=== PATIENT | male | born 1945 | race Caucasian/White ===

== ENCOUNTER 2016-08-01 09:34 | Emergency (ER) | payer MEDICARE ==
[2016-08-01] MEDS ORDERED: IOPAMIDOL 370 (76%) 100 ML VIAL IV ONE (09:35)
[2016-08-01] MEDS ORDERED: SODIUM CHLORIDE 0.9% 1,000 ML ONE (09:48)
[2016-08-01] MEDS ORDERED: MECLIZINE HCL 25 MG TABLET ONE (09:49)
--- NOTE | 2016-08-01 10:25 | RAD ---
EXAMINATION:CHEST - 2 VIEWS CLINICAL INDICATION: Trauma COMPARISON: 11/23/2012. FINDINGS: The cardiomediastinal silhouette is within normal limits. There is no adenopathy identified. There is no pleural effusion. The lungs are clear. The osseous structures are unremarkable for age. IMPRESSION: Negative PA and lateral views of the chest. No acute cardiopulmonary process is identified.
[2016-08-01] MEDS ORDERED: ONDANSETRON 4 MG/2ML 2 ML VIAL ONE (10:49)
[2016-08-01 11:10] LABS: ABSOLUTE NEUTROPHIL COUNT 10.4 K/mm3 (1.8-7.7); BASO # 0.1 K/mm3 (0.0-0.2); BASO % 0.5 % (0.2-1.0); EOS # 0.1 (0.0-0.5); EOS % 0.6 % (0.9-2.9); HEMATOCRIT 42.9 % (32.0-52.0); HEMOGLOBIN 14.5 gm/l (14.0-18.0); IMM NEUT # 0.1 K/mm3 (0-0.2); IMM NEUT% 0.4 % (0-1); LYMPH # 1.4 (1.0-4.8); MEAN CELL VOLUME 85.3 fl (80.0-94.0); MEAN CORPUSCULAR HEMOGLOBIN 28.8 pg (27.0-31.0); MEAN CORPUSCULAR HGB CONC 33.8 g/dl (33.0-37.0); MEAN PLATELET VOLUME 10.1 fl (7.4-10.4); MONO # 0.5 (0.0-0.8); MONO % 4.3 % (4-12); NEUT % 83.2 % (43-75); PLATELET COUNT 264 K/mm3 (130-400); RED CELL DISTRIBUTION WIDTH 13.5 % (11.5-14.5)
[2016-08-01 11:22] LABS: URINE BILIRUBIN NEGATIVE (NEGATIVE); URINE BLOOD NEGATIVE (NEGATIVE); URINE GLUCOSE (UA) NEGATIVE (NEGATIVE); URINE LEUKOCYTE ESTERASE NEGATIVE (NEGATIVE); URINE NITRITE NEGATIVE (NEGATIVE); URINE PROTEIN NEGATIVE (NEGATIVE); URINE UROBILINOGEN NORMAL (0-1 mg/dl)
[2016-08-01 11:25] LABS: URINE APPEARANCE CLEAR; URINE COLOR YELLOW
[2016-08-01 11:31] LABS: ALB/GLOB RATIO 1.5 (>1.0); ALBUMIN 3.8 gm/dL (3.5-5.7); CALCIUM 8.9 mg/dL (8.6-10.3); MAGNESIUM 1.8 mg/dL (1.9-2.7)
[2016-08-01 11:33] LABS: TROPONIN I < 0.01 ng/ml (0.0-0.06)
[2016-08-01 11:38] LABS: INR 1.07; PARTIAL THROMBOPLASTIN TIME 22.8 SECONDS (24.5-33.0); PROTHROMBIN TIME 11.2 SECONDS (9.3-11.4)
--- NOTE | 2016-08-01 12:48 | CT ---
HEAD W/O CON COMPARISON: None HISTORY: Dizziness with diaphoresis at 0700 this morning, brought in by ambulance from home. Dizziness improved after intravenous fluids. TECHNIQUE: Using a [employer] Aquilion [address] scanner, images were obtained through the head. An automated dose reduction technique was used to minimize patient radiation dose. DOSE INFORMATION: CTDIvol (mGy): 34.40 DLP(mGycm): 634.00 FINDINGS: Mass: None Intracranial Hemorrhage: None Acute Infarction: None Cerebral hemispheres: Normal Basal ganglia: Normal Thalami: Normal Brainstem: Normal Cerebellum: Normal Ventricles: Normal Basilar cisterns: Normal Corpus callosum: Normal Pituitary fossa: Normal Middle ears and mastoid air cells: Normal Orbits and sinuses: Right posterior sphenoid sinus soft tissue swelling up to 4 mm. Skull and scalp: Normal Dural sinuses and vessels: Normal IMPRESSION: 1. No acute finding. No intrarenal hemorrhage or cerebral edema. Incidentally noted small focus of mucosal thickening in the right posterior sphenoid sinus. Report was sent to the emergency department [employer] medical record system 08/01/2016 at 12:49
--- NOTE | 2016-08-01 12:53 | CT ---
CTA HEAD W/ POST PROCESS COMPARISON: Head CT without contrast, 08/01/2016 HISTORY: Dizziness, nystagmus and diaphoresis. TECHNIQUE: [employer] Aquilion [address] scanner. Intravenous injection 80 mL Isovue-370. Contrast-enhanced images obtained. Under concurrent supervision and interpretation, requiring a separate 3-D workstation, the automation technologist created 3-D CT angiograms. An automated dose reduction technique was used to minimize patient radiation dose. Dose information: CTDIvol (mGy): 34.40, 64.00 DLP(mGycm): 3488.30 FINDINGS: 3-D CT angiogram findings: No vessel occlusion. The right posterior cerebral artery originates from the right internal carotid artery. No arteriovenous malformation. No aneurysm. IMPRESSION: Normal study. Report was sent to the emergency department [employer] medical record system 08/01/2016 at 12:55
--- NOTE | 2016-08-01 12:57 | CT ---
CTA CAROTID W/ POST PROCESS COMPARISON: None. HISTORY: Dizziness, nystagmus, and diaphoresis. TECHNIQUE: [employer] Aquilion [address] scanner. Intravenous injection 80 mL Isovue-370. Contrast-enhanced images obtained from the aortic arch to the skull base. Under concurrent supervision and interpretation, requiring a separate 3-D workstation, the sonography technologist created 3-D CT angiograms. An automated dose reduction technique was used to minimize patient radiation dose. Dose information: CTDIvol (mGy): 34.40, 64.00 DLP(mGycm): 3488.30 FINDINGS: Aortic arch: Normal. Brachiocephalic artery: Normal. Right common carotid artery: Normal. Right internal carotid artery: Proximal posterior soft and hard plaque, less than 50% diameter stenosis. Right external carotid artery: Normal. Right vertebral artery: Normal. Right subclavian artery: Normal. Left subclavian artery: Normal. Left common carotid artery: Normal. Left internal carotid artery: Normal. Left external carotid artery: Normal. Left vertebral artery: Normal. Internal jugular veins: Normal. Airway: Normal Lymph nodes: Normal Salivary glands: Normal Thyroid gland: Normal. Muscles: Normal. Spine: Degenerative changes. Superior mediastinum: Normal Lung apices: Normal. IMPRESSION: Less than 50% diameter stenosis of the proximal right internal carotid artery. Report was sent to the emergency department [employer] medical record system 08/01/2016 at 12:59
== END 2016-08-01 13:31 | disposition home or self-care (01) ==
LOC: ED 09:34
DX: R42 Dizziness and giddiness (principal); D72.829 Elevated white blood cell count, unspecified; I10 Essential (primary) hypertension
CPT/HCPCS: 85025; 82550; 82553; 80053; 83735; 85730; 85610; 81003; 84484; 71020; 70450; 70496; 70498; 99284 ×2; 96374; 96361; 93005; A9270; J2405; J7030; Q9967